=== PATIENT | male | born 1990 | race Hispanic/Latino ===

== ENCOUNTER 2017-02-14 15:23 | Emergency (ER) | payer SELFPAY ==
[2017-02-14 15:43] VITALS: BP 119/84
== END 2017-02-14 19:57 | disposition left against medical advice (07) ==
LOC: ED 15:23
DX: K08.89 Other specified disorders of teeth and supporting structures (principal); Z53.21 Procedure and treatment not carried out due to patient leaving prior to being seen by health care provider